=== PATIENT | male | born 1980 | race Caucasian/White ===

== ENCOUNTER 2023-03-17 11:49 | Observation (INO) | payer OTHER ==
[2023-03-17 12:21] LABS: #Basophils 0.1 10x3/uL (0.0-0.2); #Eosinphils 0.2 10x3/uL (0.0-0.5); #Monocytes 0.7 10x3/uL (0.0-1.1); #Neutrophils 6.7 10x3/uL (1.5-8.4); %Basophils 0.8 % (0.0-2.0); %Lymphocytes 25.3 % (18.0-47.0); %Monocytes 6.6 % (0.0-10.0); %Neutrophils 64.9 % (40.0-75.0); Mean Corpuscular HGB CONC 34.1 g/dL (32.0-36.0); Mean Corpuscular Hemoglobin 28.9 pg (27.0-33.0); Mean Corpuscular Volume 84.7 fl (81.2-95.1); Mean Platelet Volume 9.8 fl (7.4-10.4); Platelet Count 275 10x3/uL (150-450); RBC Distribution Width 12.3 % (11.5-14.5); Red Blood Cell (RBC) Count 5.54 10x6/uL (4.32-5.72); White Blood Cell (WBC) Count 10.3 10x3/uL (3.5-10.5)
[2023-03-17 12:38] LABS: ALT (SGPT) 42 U/L (8-55); AST (SGOT) 21 U/L (5-34); Albumin 4.7 g/dL (3.5-5.0); Alkaline Phosphatase 64 U/L (40-110); Anion Gap 14 mmol/L (10-20); BUN (Urea Nitrogen) 17 mg/dL (8.9-20.6); Bilirubin, Total 0.5 mg/dL (0.2-1.2); Calc. Creatinine Clearance 0 mL/min (70-130); Calcium 9.4 mg/dL (7.8-10.44); Carbon Dioxide 24 mmol/L (22-29); Chloride 106 mmol/L (98-107); Estimated GFR 80; Globulin 2.7 g/dL (2.4-3.5); Glucose 104 mg/dL (70-105); Lipase 25 U/L (8-78); Potassium 4.6 mmol/L (3.5-5.1); Protein, Total 7.4 g/dL (6.0-8.3); Sodium 139 mmol/L (136-145)
[2023-03-17 16:45] LABS: Troponin I Less than 0.010 ng/mL (< 0.028)
[2023-03-17] MEDS ORDERED: Communication Order-Pharmacy FS SCH (17:00)
[2023-03-17 18:57] LABS: Troponin I Less than 0.010 ng/mL (< 0.028)
[2023-03-17 20:29] VITALS: BMI 30.7
[2023-03-18] MEDS ORDERED: Lidocaine 1% MPF 2 ML VIAL ONE (08:16)
[2023-03-18] MEDS ORDERED: Lidocaine 1% (PF) 30 ML VIAL ONE (08:16)
[2023-03-18] MEDS ORDERED: Nitroglycerin 50 MG/250 ML BOT 250 ML ONE (08:16)
[2023-03-18] MEDS ORDERED: Verapamil 5 MG/2 ML VIAL ONE (08:17)
[2023-03-18] MEDS ORDERED: Heparin 10,000 UNITS/ 10 ML VIAL ONE (08:17)
[2023-03-18] MEDS ORDERED: Adenosine 6 MG/2 ML VIAL ONE (08:18)
[2023-03-18] MEDS ORDERED: Bivalirudin 250 MG VIAL ONE (08:18)
[2023-03-18] MEDS ORDERED: Sodium Chloride 0.9% 1,000 ML ONE (08:18)
[2023-03-18] MEDS ORDERED: Aspirin Chewable 81 MG TAB PO SCH (09:00)
[2023-03-18] MEDS ORDERED: Fentanyl 100 MCG/2 ML VIAL ONE (09:22)
[2023-03-18] MEDS ORDERED: Midazolam HCl 2 mg/2 ml Vial ONE (09:22)
[2023-03-18] MEDS ORDERED: Iopamidol 300 61% 100 ML VIAL FS ONE (09:46)
[2023-03-18] MEDS ORDERED: Nitroglycerin 0.4 MG TAB (25 Tab Bottle) SL PRN (09:56)
[2023-03-18] MEDS ORDERED: Acetaminophen 325 MG TAB PO PRN (09:56)
[2023-03-18] MEDS ORDERED: Sodium Chloride 0.9% 1,000 ML IV SCH (10:00)
[2023-03-18 12:31] VITALS: TEMP 98.3
[2023-03-18 13:17] VITALS: BP 122/78
== END 2023-03-18 14:22 | disposition home or self-care (01) ==
LOC: CSHERS 11:49 → CSHTELE 20:03
PROVIDERS: ADMIT Emergency Medicine; ATTEND Emergency Medicine
DX: R07.2 Precordial pain (principal); R06.02 Shortness of breath; R42 Dizziness and giddiness; I10 Essential (primary) hypertension; I49.3 Ventricular premature depolarization; G47.33 Obstructive sleep apnea (adult) (pediatric); K51.919 Ulcerative colitis, unspecified with unspecified complications; I49.1 Atrial premature depolarization; K21.9 Gastro-esophageal reflux disease without esophagitis; Z88.0 Allergy status to penicillin; Z88.5 Allergy status to narcotic agent; Z79.899 Other long term (current) drug therapy
CPT/HCPCS: 36415; 71045; 80053; 83690; 84484; 85025; 85379; 93005; 93458; 99152; C1769; C1894; G0378; J0153; J0583; J1644; J2001; J2250; J3010; J7050; Q9967